=== PATIENT | female | born 1955 | race Caucasian/White ===

== ENCOUNTER → 2020-04-29 09:35 | Outpatient (BNVA) | payer BC, SELFPAY | PROVIDERS: Family Provider Nurse Practitioner Family; Visit Provider Nurse Practitioner Family | DX: E55.9 Vitamin D deficiency, unspecified (principal); N18.31 Chronic kidney disease, stage 3a; D51.8 Other vitamin B12 deficiency anemias; Z79.899 Other long term (current) drug therapy; I10 Essential (primary) hypertension; E78.2 Mixed hyperlipidemia | CPT/HCPCS: 80053; 80061; 82306; 82607; 82746; 83036; 83735; 84100; 84443; 85025 ==

== ENCOUNTER → 2022-07-21 09:20 | Outpatient (BNVA) | payer MEDICARE, SELFPAY | PROVIDERS: Family Provider Nurse Practitioner Family; PCP Nurse Practitioner; Visit Provider Nurse Practitioner | DX: I10 Essential (primary) hypertension (principal) | CPT/HCPCS: 80053; 80061; 85025 ==

== ENCOUNTER → 2023-11-16 09:00 | Outpatient (BNVA) | payer MEDICARE, SELFPAY | PROVIDERS: Family Provider Nurse Practitioner Family; PCP Nurse Practitioner Family; Visit Provider Nurse Practitioner Family | DX: I10 Essential (primary) hypertension (principal); N18.31 Chronic kidney disease, stage 3a; D51.8 Other vitamin B12 deficiency anemias; E55.9 Vitamin D deficiency, unspecified; E78.2 Mixed hyperlipidemia; Z79.899 Other long term (current) drug therapy | CPT/HCPCS: 80053; 80061; 81003; 82306; 82607; 83036; 84443; 85025 ==

== ENCOUNTER → 2023-11-24 11:31 | Outpatient (BNVA) | payer MEDICARE, SELFPAY | PROVIDERS: Family Provider Nurse Practitioner Family; PCP Nurse Practitioner Family; Visit Provider Nurse Practitioner Family | DX: N18.31 Chronic kidney disease, stage 3a (principal) | CPT/HCPCS: 80053; 81000; 82570; 84156 ==

== ENCOUNTER 2024-03-10 15:01 | Inpatient (IN) | payer MEDICARE, SELFPAY ==
[2024-03-10 15:33] VITALS: BP 101/66; PULSE 80; RESP 16; TEMP 36.4; O2SAT 99; BMI 44.2
[2024-03-10 15:51] LABS: Basophils # 0.1 10^3/uL (0.0-0.1); Basophils % 1.1 %; Eosinophils # 0.1 10^3/uL (0.0-0.8); Eosinophils % 0.6 %; Hematocrit 36.5 % (36-47); Lymphocytes # 1.5 10^3/uL (0.8-4.8); Lymphocytes % 13.5 %; Mean Corpuscular HGB Conc 30.4 g/dL (30-55); Mean Corpuscular Hemoglobin 29.2 pg (27-33); Mean Corpuscular Volume 96.1 fl (85-98); Mean Platelet Volume 9.4 fL (7.4-10.4); Monocytes # 0.8 10^3/uL (0.2-0.9); Monocytes % 6.9 %; Neutrophils # 8.81 10^3/uL (1.8-7.7); Neutrophils % 77.5 %; Nucleated Red Blood Cells % 0 %; Platelet Count 295 10^3/cmm (157-399); Red Cell Distribution Width 15.9 % (12.1-15.1); White Blood Count 11.37 10^3/uL (3.29-11.43)
[2024-03-10 16:16] LABS: Alanine Aminotransferase 8 U/L (0-33); Albumin Level 3.9 g/dL (3.5-5.2); Alkaline Phosphatase 62 U/L (35-105); Anion Gap 22.3 (5-19); Aspartate Amino Transferase 9 U/L (0-32); Calcium 9.6 mg/dL (8.5-10.5); Carbon Dioxide 16 mmol/L (22-29); Chloride 106 mmol/L (98-107); Creatinine Clr Calc Pharmacy 15.5969; Globulin 4.4 g/dL (1.3-4.6); Glucose 118 mg/dL (65-115); Lipase 40 U/L (13-60); Osmolality Calculated 323 mOsm/kg (285-295); Potassium 5.3 mmol/L (3.5-5.1); Sodium 139 mmol/L (136-145); Total Bilirubin 0.4 mg/dL (0.15-1.2); Total Protein 8.3 g/dL (6.6-8.7)
[2024-03-10 16:23] LABS: Blood Urea Nitrogen 109 mg/dL (8-23)
--- NOTE | 2024-03-10 16:35 | XRR_ITS ---
PROCEDURE INFORMATION: Exam: XR Chest Exam date and time: 03/10/2024 4:49 PM Age: 68 years old Clinical indication: Dyspnea; Additional info: SOB TECHNIQUE: Imaging protocol: Radiologic exam of the chest. Views: 1 view. COMPARISON: No relevant prior studies available. FINDINGS: Lungs: Suboptimal inspiration. No consolidation. Pleural spaces: Unremarkable. No pleural effusion. No pneumothorax. Heart/Mediastinum: Unremarkable. No cardiomegaly. Bones/joints: Unremarkable. XR/XR chest 1V portable [id number] IMPRESSION: No acute findings.
--- NOTE | 2024-03-10 16:50 | ED_ITS ---
HPI - SOB/Dyspnea 2 General: Chief Complaint: Shortness of Breath/Dyspnea Stated Complaint: dehydration Time Seen by Provider: 03/10/24 16:41 Source: patient Mode of arrival: ambulatory Limitations: no limitations History of Present Illness: HPI Narrative: 68-year-old female states that she had a viral bug 2 weeks ago and ever since then has been feeling really weak states she has had not had much oral intake and feels very dehydrated. States she is been short of breath with walking and has had decreased urination as well and concern that she is dehydrated. She denies any fevers she denies any diarrhea Associated symptoms: Reports vomiting; Deny abdominal pain, chest pain, fever(s) or nausea Related Data Previous Rx's Medication Instructions Recorded cholecalciferol (vitamin D3) 1,250 50,000 unit PO DAILY 90 days #12 11/23/23 mcg (50,000 unit) capsule caps folic acid 1 mg tablet 1,000 mcg PO DAILY 90 days #90 tabs 11/23/23 lisinopril 20 1 tab PO DAILY 90 days #90 tabs 11/23/23 mg-hydrochlorothiazide 25 mg tablet mecobalamin (vitamin B12) 1,000 1,000 mcg PO DAILY 90 days #90 tabs 11/23/23 mcg chewable tablet Allergies Allergy/AdvReac Type Severity Reaction Status Date / Time No Known Allergies Allergy Unverified 03/10/24 13:41 Review of Systems 2 Const: Reports: fatigue and malaise; Denies: fever(s), chills, body aches or change in appetite ENMT: Denies: throat pain or dental pain Card: Denies: chest pain Resp: Denies: dyspnea GI: Reports: vomiting; Denies: abdominal pain, nausea or diarrhea Musc: Denies: neck pain or back pain Skin/Breast: Denies: rash Neuro: Denies: headache(s) PFSH ED 2 PFSH: Medical History Hypotension Vitamin B12 deficiency (dietary) anemia Medication management Arthritis of left knee Vitamin D deficiency Mixed hyperlipidemia Vitamin B12 deficiency (dietary) anemia Primary osteoarthritis involving multiple joints CKD (chronic kidney disease), stage III Essential hypertension Family History Mother Hypertension Cancer breast cancer Father Hypertension Social History Smoking and tobacco/nicotine status: never used tobacco/nicotine Alcohol intake: never Substance/Drug Use: never Physical Exam 2 Const: COMMON NORMALS: patient oriented x3 HENMT: COMMON NORMALS: normocephalic and atraumatic HEAD & SCALP: n ormocephalic and atraumatic Neck/C-Spine: COMMON NORMALS: full ROM and supple Chest: COMMONS NORMALS: normal inspection of the chest and normal palpation of entire chest wall Resp: COMMON NORMALS: normal respiratory effort, No retractions, No use of accessory muscles and clear to auscultation bilaterally AUSCULTATION: clear to auscultation bilaterally Cardio: COMMON NORMALS: regular rate, regular rhythm and No murmurs present (Cardio) RATE: regular rate RHYTHM: regular rhythm GI: COMMON NORMALS: Normal to inspection, nondistended, normoactive bowel sounds present, Soft to palpation, non-tender and no masses PALPATION: Yes Soft to palpation Extremity: COMMON NORMALS: normal to inspection and full ROM Neuro: COMMON NORMALS: patient oriented x3, moves all extremities and no focal motor deficits Psych: COMMON NORMALS: mental status grossly normal, Normal thought process present and cooperative THOUGHT PROCESS: Normal thought process present Skin: COMMON NORMALS: no rashes or lesions noted and no wounds GENERAL SKIN EXAM: no rashes or lesions noted Course 2 Vital Signs: Vital signs: Vital Signs Temperature 97.6 F 03/10/24 15:33 Pulse Rate 80 03/10/24 15:33 Respiratory Rate 16 03/10/24 15:33 Blood Pressure 101/66 03/10/24 15:33 Pulse Oximetry 99 03/10/24 15:33 Oxygen Delivery Me thod Room Air 03/10/24 15:33 MDM - SOB/Dyspnea Medical Decision Making Patient presents with acute kidney injury likely from dehydration did start IV fluids in the ER spoke to the hospitalist will admit at this time. Medical Records I reviewed the patient's medical records. Lab Data I reviewed the patient's lab results. 03/10/24 15:43 03/10/24 15:43 Labs/Radiology: Laboratory Results WBC 11.37 10^3/uL (3.29-11.43) 03/10/24 15:43 RBC 3.80 10^6/uL (3.85-5.65) L 03/10/24 15:43 Hgb 11.10 g/dL (11.27-16.99) L 03/10/24 15:43 Hct 36.5 % (36-47) 03/10/24 15:43 MCV 96.1 fl (85-98) 03/10/24 15:43 MCH 29.2 pg (27-33) 03/10/24 15:43 MCHC 30.4 g/dL (30-55) 03/10/24 15:43 RDW 15.9 % (12.1-15.1) H 03/10/24 15:43 Plt Count 295 10^3/cmm (157-399) 03/10/24 15:43 MPV 9.4 fL (7.4-10.4) 03/10/24 15:43 Neut % (Auto) 77.5 % 03/10/24 15:43 Lymph % (Auto) 13.5 % 03/10/24 15:43 Turner % (Auto) 6.9 % 03/10/24 15:43 Eos % (Auto) 0.6 % 03/10/24 15:43 Baso % (Auto) 1.1 % 03/10/24 15:43 Neut # (Auto) 8.81 10^3/uL (1.8-7.7) H 03/10/24 15:43 Lymph # (Auto) 1.5 10^3/uL (0.8-4.8) 03/10/24 15:43 Turner # (Auto) 0.8 10^3/uL (0.2-0.9) 03/10/24 15:43 Eos # (Auto) 0.1 10^3/uL (0.0-0.8) 03/10/24 15:43 Baso # (Auto) 0.1 10^3/uL (0.0-0.1) 03/10/24 15:43 Nucleated RBC % (auto) 0 % 03/10/24 15:43 Nucleated RBCs # 0.0 /100WBC 03/10/24 15:43 Sodium 139 mmol/L (136-145) 03/10/24 15:43 Potassium 5.3 mmol/L (3.5-5.1) H 03/10/24 15:43 Chloride 106 mmol/L (98-107) 03/10/24 15:43 Carbon Dioxide 16 mmol/L (22-29) L 03/10/24 15:43 Anion Gap 22.3 (5-19) H 03/10/24 15:43 BUN 109 mg/dL (8-23) H* D 03/10/24 15:43 Creatinine 4.4 mg/dL (0.5-0.9) H 03/10/24 15:43 GFR Calculation 10.0 mL/min (90-130) L 03/10/24 15:43 Glucose 118 mg/dL (65-115) H 03/10/24 15:43 Calculated Osmolality 323 mOsm/kg (285-295) H 03/10/24 15:43 Calcium 9.6 mg/dL (8.5-10.5) 03/10/24 15:43 Total Bilirubin 0.4 mg/dL (0.15-1.2) 03/10/24 15:43 AST 9 U/L (0-32) 03/10/24 15:43 ALT 8 U/L (0-33) 03/10/24 15:43 Alkaline Phosphatase 62 U/L (35-105) 03/10/24 15:43 Total Protein 8.3 g/dL (6.6-8.7) 03/10/24 15:43 Albumin 3.9 g/dL (3.5-5.2) 03/10/24 15:43 Globulin 4.4 g/dL (1.3-4.6) 03/10/24 15:43 Lipase 40 U/L (13-60) 03/10/24 15:43 All radiology interpretation(s) finalized by discharge Discharge Plan Discharge Patient Disposition: Admitted As Inpatient Clinical Impression: Acute kidney injury, Dehydration Condition: Stable Prescriptions: No Action cholecalciferol (vitamin D3) 1,250 mcg (50,000 unit) capsule 50,000 unit PO DAILY 90 Days Qty: 12 1RF mecobalamin (vitamin B12) 1,000 mcg tablet,chewable 1,000 mcg PO DAILY 90 Days Qty: 90 0RF folic acid 1 mg tablet 1,000 mcg PO DAILY 90 Days Qty: 90 1RF lisinopril-hydrochlorothiazide 20-25 mg tablet 1 tab PO DAILY 90 Days Qty: 90 3RF Referrals: Gross,DJ, [employer]ER [Primary Care Provider] - Coding Level of Care Code ED [employer] E[employer]ctor for Walt Uriostegui
--- NOTE | 2024-03-10 16:57 | ECG_ITS ---
[facility] Test Date: 2024-03-10 Pat Name: Freda Grajeda Department: Room: Gender: Female Bargeman: : 1955 Requested By: Annabelle Zaldivar Order Number: [id number] Sherif MD: Rosalio Tabares M.D. Measurements Intervals [place] Rate: 78 P: 26 IN: 179 QRS: -1 QRSD: 93 T: 46 QT: 358 QTc: 408 Interpretive Statements SINUS RHYTHM LOW QRS VOLTAGE IN PRECORDIAL LEADS [QRS DEFLECTION < 1.0 mV IN CHEST LEADS] No previous ECG available for comparison Electronically Signed On 03-10-2024 18:19:57 CDT by Rosalio Tabares M.D. [email or web address]
[2024-03-10 17:08] LABS: NT Pro B Type Natriuretic Pept 320 pg/mL (0-125)
--- NOTE | 2024-03-10 17:25 | USR_ITS ---
PROCEDURE INFORMATION: Exam: US Retroperitoneal, Complete, Kidneys and Bladder Exam date and time: 03/10/2024 5:57 PM Age: 68 years old Clinical indication: Condition or disease; Other: [place] TECHNIQUE: Imaging protocol: Real-time ultrasound of the retroperitoneum with image documentation. Complete exam focused on the bilateral kidneys and urinary bladder. COMPARISON: No relevant prior studies available. FINDINGS: Right kidney: Right kidney measures 9.7 x 6.1 x 3.8 cm with a volume of 118.1 cc. There is renal cortical thinning. No hydronephrosis or mass. Left kidney: Left kidney measures 11.4 x 6.3 x 5.5 cm with volume of 206.7 cc. There is renal cortical thinning. No hydronephrosis. There is a solid-appearing structure at the inferior pole of the left kidney measuring 4.3 x 4.2 x 2.8 cm. A 9 mm calculus is present in a midpole calyx of the left kidney. There are poorly visualized cystic structures in the left kidney the larger of which measures 3.2 x 3.0 x 3.6 cm. There is some internal complexity within this cystic structure which is not well seen. Urinary bladder: Unremarkable. Other findings: Technically difficult study secondary to the body habitus of the patient. US/US renal BI* [id number] IMPRESSION: 1. Technically difficult study secondary to the body habitus of the patient. There is a 4.3 cm solid-appearing structure at the inferior pole of the left kidney. Additional cystic structures are poorly visualized. MRI of the abdomen, renal protocol with and without IV contrast recommended for further evaluation. 2. There is a 9 mm left renal calculus.
--- NOTE | 2024-03-10 17:26 | P.HP_ITS ---
Providers/Chief Complaint 2 Primary Care Provider: ELISE Ceron Chief Complaint: dehydration History of Present Illness Freda Grajeda is a 68 year old female with a past medical history of CKD stage III, hypertension, hyperlipidemia, who presents to [facility] due to poor appetite, fatigue, malaise, decreased urine output. Patient tells me that for the last 2 weeks she has had decreased oral intake, poor appetite, fatigue, malaise, decreased urine output. She tells me that 2 weeks ago she did have a bout of diarrhea which has resolved. She does report poor oral intake of fluids. 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 She is struggling to take care of her daughter, and has been having family members help take care of her. She denies a history of kidney stones. Denies any hematuria. Denies any falls. No nausea, no vomiting. No abdominal pain. No chest pain. Review of Systems 2 Const: Reports: fatigue and malaise Card: Denies: chest pain Resp: Denies: dyspnea GI: Denies: abdominal pain, nausea or vomiting : Denies: flank pain Medications/Allergies Home Medications Medication Instructions Recorded Confirmed Last Taken Type cholecalciferol (vitamin D3) 1,250 50,000 unit PO DAILY 90 days #12 11/23/23 03/10/24 Unknown Rx mcg (50,000 unit) capsule caps folic acid 1 mg tablet 1,000 mcg PO DAILY 90 days #90 tabs 11/23/23 03/10/24 Unknown Rx lisinopril 20 1 tab PO DAILY 90 days #90 tabs 11/23/23 03/10/24 Unknown Rx mg-hydrochlorothiazide 25 mg tablet mecobalamin (vitamin B12) 1,000 1,000 mcg PO DAILY 90 days #90 tabs 11/23/23 03/10/24 Unknown Rx mcg chewable tablet Allergies Allergy/AdvReac Type Severity Reaction Status Date / Time No Known Allergies Allergy Unverified 03/10/24 13:41 PFSH Acute 2 PFSH: Medical History Hypotension Vitamin B12 deficiency (dietary) anemia Medication management Arthritis of left knee Vitamin D deficiency Mixed hyperlipidemia Vitamin B12 deficiency (dietary) anemia Primary osteoarthritis involving multiple joints CKD (chronic kidney disease), stage III Essential hypertension Family History Mother Hypertension Cancer breast cancer Father Hypertension Social History Smoking and tobacco/nicotine status: never used tobacco/nicotine Alcohol intake: never Substance/Drug Use: never Vitals/I&O/Wt Last Vital Signs Temp 97.6 F 03/10/24 15:33 Pulse 80 03/10/24 15:33 Resp 16 03/10/24 15:33 BP 101/66 03/10/24 15:33 Pulse Ox 99 03/10/24 15:33 O2 Del Method Room Air 03/10/24 15:33 Weight last 48 hrs Weight 117.027 kg Physical Exam 2 Const: COMMON NORMALS: no acute distress and patient oriented x3 Eye: COMMON NORMALS: Equal, round and reactive pupils present and EOMs intact bilaterally Resp: COMMON NORMALS: normal respiratory effort, No retractions, No use of accessory muscles and clear to auscultation bilaterally AUSCULTATION: clear to auscultation bilaterally Cardio: COMMON NORMALS: no JVD, regular rate, regular rhythm, S1 normal heart sound present and S2 normal heart sound present RATE: regular rate RHYTHM: regular rhythm HEART SOUNDS: S1 normal heart sound present and S2 normal heart sound present GI: COMMON NORMALS: Normal to inspection, nondistended, normoactive bowel sounds present, Soft to palpation and non-tender Extremity: COMMON NORMALS: no pedal edema Neuro: COMMON NORMALS: patient oriented x3, CN's II-XII intact bilaterally, moves all extremities and no focal motor deficits Psych: COMMON NORMALS: mental status grossly normal Data 03/10/24 15:43 03/10/24 15:43 A&P Assessment and plan (1) Acute renal failure: (2) Uremia: (3) Essential hypertension: (4) CKD (chronic kidney disease), stage III: Qualifiers: Chronic kidney disease stage 3 subtype: stage 3a (GFR 45-59) Qualified Code(s): N18.31 - Chronic kidney disease, stage 3a Plan Acute renal failure -With CKD ? Secondary to poor appetite, dehydration Secondary to blood pressure medications ? Plan ? Lactic acid ? CPK ? Place Lomax catheter ? Monitor urine output closely IV fluids ? TSH ? Urine studies ? Renal ultrasound ? Consult nephrology ? Full code Heparin for DVT prophylaxis Attestations 2 Medical Necessity Statement*: Patient requires hospitalization, inpatient, greater than 2 midnights for acute renal failure Diagnoses Acute renal failure N17.9 Uremia N19 Essential hypertension I10 Stage 3a chronic kidney disease N18.31 Chronic kidney disease stage 3 subtype: stage 3a (GFR 45-59)
[2024-03-10 17:38] LABS: INR 1.08 (0.8-1.2)
[2024-03-10 17:53] LABS: Creatine Phosphokinase 39 U/L (26-192); Lactic Sepsis W/Reflex 1.8 mmol/L (0.5-2.2); Magnesium 2.3 mg/dL (1.7-2.3); Phosphorus 4.5 mg/dL (2.5-4.5)
[2024-03-10 18:10] LABS: Salicylate < 0.3 mg/dL (3-10)
[2024-03-10] MEDS: sodium chloride 0.9% 1,000 ML 125 ML IV (18:47)
--- NOTE | 2024-03-10 19:03 | PC.NURSE ---
20g iv inserted to left a/c
[2024-03-10 19:19] LABS: Chol HDL Ratio 4.69 mg/dL (0.0-4.40); Cholesterol 150 mg/dL (0-200); HDL Cholesterol 32 mg/dL (60-100); LDL Cholesterol Calculated 86 mg/dL (50-129); LDL HDL Ratio 2.69 RATIO (0.00-3.22); Thyroid Stimulating Hormone 2.45 uIU/mL (0.27-4.20); Triglycerides 158 mg/dL (0-150)
[2024-03-10 20:00] VITALS: BP 102/67; PULSE 67; PULSE 72; RESP 18; TEMP 36.4; O2SAT 98
[2024-03-10 20:27] VITALS: O2SAT 98
[2024-03-10] MEDS: pneumococcal (23 valent) SDV 0.5 mL IM (20:44)
[2024-03-10 20:47] LABS: Charge for UA Resulting for Rev
[2024-03-10] MEDS: heparin 5,000 unit/mL INJ 1 mL 5000 UNIT SUBCUT (20:47)
[2024-03-10] MEDS: pantoprazole 40 mg SDV IVP (20:48)
[2024-03-10 20:49] LABS: Bilirubin Urine Negative (Negative); Blood Urine 3+ (Negative); Glucose Urine UA Negative (Normal); Ketones Urine Trace (Negative); Leukocyte Esterase Urine 3+ (Negative); Nitrate Urine Negative (Negative); Protein Urine 3+ (Negative); Specific Gravity, Urine 1.015 (1.005-1.030); Urine Appearance Turbid (CLEAR); Urine Color Yellow (Yellow)
[2024-03-10 20:54] LABS: Bacteria Urine EXCEEDS /hpf; Hyaline Casts Urine 64.43 /lpf; RBC Urine >100 /hpf (0-2); WBC Urine >100 /hpf (0-5)
[2024-03-10 21:00] LABS: Amphetamines Screen Urine Negative (Negative); Barbiturates Screen Urine Negative (Negative); Benzodiazepines Screen Urine Negative (Negative); Cocaine Screen Urine Negative (Negative); Opiate Screen Urine Negative (Negative); PCP Screen Urine Negative (Negative); THC Screen Urine Negative (Negative)
[2024-03-10 21:11] LABS: Add Urine Culture? Yes; UA Slide Review UA Slide Review Perf
[2024-03-10 21:12] LABS: Potassium, Radom Urine 31 mmol/L; Urine Creatinine 171 mg/dL (28-217); Urine Random Chloride 44 mmol/L; Urine Random Sodium 49 mmol/L
[2024-03-10 21:13] LABS: Estmated Average Glucose 111; Hemoglobin A1C 5.5 % (4.0-6.0)
[2024-03-10 21:30] LABS: Eosinophil Urine Eosinophils Seen; Urine Eosinophil Count 2 (0-0)
[2024-03-10] MEDS: cefTRIAXone 1,000 mg SDV 1000 MG IVP (21:42)
[2024-03-10 21:59] VITALS: PULSE 67
[2024-03-10 23:58] VITALS: BP 100/63; PULSE 68; RESP 16; TEMP 36.7; O2SAT 97
[2024-03-11] VITALS (8 sets, daily range): BP systolic 80–107; BP diastolic 51–63; PULSE 65–72; RESP 15–18; TEMP 36.7–36.9; O2SAT 93–98
[2024-03-11] MEDS: sodium chloride 0.9% 1,000 ML 125 ML IV (00:23)
[2024-03-11 04:41] LABS: Basophils # 0.1 10^3/uL (0.0-0.1); Eosinophils # 0.1 10^3/uL (0.0-0.8); Eosinophils % 1.2 %; Hematocrit 31.5 % (36-47); Lymphocytes # 1.6 10^3/uL (0.8-4.8); Lymphocytes % 17.8 %; Mean Corpuscular HGB Conc 30.2 g/dL (30-55); Mean Corpuscular Hemoglobin 29.6 pg (27-33); Mean Corpuscular Volume 98.1 fl (85-98); Mean Platelet Volume 9.7 fL (7.4-10.4); Monocytes # 0.7 10^3/uL (0.2-0.9); Monocytes % 7.6 %; Neutrophils # 6.34 10^3/uL (1.8-7.7); Neutrophils % 71.8 %; Nucleated Red Blood Cells % 0 %; Platelet Count 228 10^3/cmm (157-399); Red Blood Count 3.21 10^6/uL (3.85-5.65); Red Cell Distribution Width 16.3 % (12.1-15.1); White Blood Count 8.83 10^3/uL (3.29-11.43)
[2024-03-11 05:03] LABS: Alanine Aminotransferase 9 U/L (0-33); Albumin Level 3.3 g/dL (3.5-5.2); Alkaline Phosphatase 54 U/L (35-105); Anion Gap 20.2 (5-19); Aspartate Amino Transferase 8 U/L (0-32); Calcium 8.7 mg/dL (8.5-10.5); Carbon Dioxide 15 mmol/L (22-29); Chloride 112 mmol/L (98-107); Creatinine Clr Calc Pharmacy 17.8367; Globulin 3.9 g/dL (1.3-4.6); Glomerular Filtration Rate 11.2 mL/min (90-130); Glucose 85 mg/dL (65-115); Potassium 5.2 mmol/L (3.5-5.1); Sodium 142 mmol/L (136-145); Total Bilirubin 0.2 mg/dL (0.15-1.2); Total Protein 7.2 g/dL (6.6-8.7)
[2024-03-11 05:13] LABS: Blood Urea Nitrogen 118 mg/dL (8-23); Osmolality Calculated 331 mOsm/kg (285-295)
[2024-03-11] MEDS: heparin 5,000 unit/mL INJ 1 mL 5000 UNIT SUBCUT (06:03)
--- NOTE | 2024-03-11 06:31 | P.CONIM_ITS ---
Providers/Reason For Consult 2 Consulting Physician/Specialty*: kommana/Nephrology Reason for Consult*: DEVYN on CKD Attending Physician: Jareth Johnson MD Primary Care Provider: ELISE Ceron History of Present Illness History of Present Illness Freda Grajeda is a 68 year old female Patient is a 68-year-old female with past medical history of hypertension, dyslipidemia, chronic kidney disease stage III with a baseline creatinine in the mid 1 range admitted to the hospital due to poor appetite fatigue malaise decreased p.o. intake. Patient also noticed decreased urine output in the last few days. Patient reports that she had a viral infection about 2 weeks ago and at that time she had severe diarrhea. Since that time patient diarrhea has improved but her p.o. intake and appetite has not improved. She was supposed to see nephrology and follow-up as outpatient but has not followed up. In the emergency department vital signs are stable and lab data is significant for potassium of 5.3 CO2 of 16 BUN of 109 and creatinine of 4.4. Home medications included HCTZ and lisinopril. Denies any NSAID use. Review of Systems 2 Narrative: Patient is awake alert on room air, no distress HEENT S1-S2 regular rate and rhythm per report Lungs clear per report No pedal edema Medications/Allergies Home Medications Medication Instructions Recorded Confirmed Last Taken Type cholecalciferol (vitamin D3) 1,250 50,000 unit PO DAILY 90 days #12 11/23/23 03/10/24 Unknown Rx mcg (50,000 unit) capsule caps folic acid 1 mg tablet 1,000 mcg PO DAILY 90 days #90 tabs 11/23/23 03/10/24 Unknown Rx mecobalamin (vitamin B12) 1,000 1,000 mcg PO DAILY 90 days #90 tabs 11/23/23 03/10/24 Unknown Rx mcg chewable tablet lisinopril 20 1 tab PO DAILY 03/10/24 03/10/24 Unknown History mg-hydrochlorothiazide 12.5 mg tablet Allergies Allergy/AdvReac Type Severity Reaction Status Date / Time No Known Allergies Allergy Unverified 03/10/24 13:41 Current Medications Generic Name Dose Route Start Last Admin Trade Name Freq PRN Reason Stop Dose Admin Ceftriaxone Sodium 1,000 mg 03/10/24 21:30 03/10/24 21:42 Ceftriaxone 1,000 Mg Sdv IVP 1,000 mg Q24H NICKIE Administration Protocol Heparin Sodium (Porcine) 5,000 unit 03/10/24 19:00 03/11/24 06:03 Heparin 5,000 Unit/Ml Inj 1 Ml SUBCUT 5,000 unit Q12H NICKIE Administration Pantoprazole Sodium 40 mg 03/10/24 18:44 03/10/24 20:48 Pantoprazole 40 Mg Sdv IVP 40 mg Q24H NICKIE Administration PFSH Acute 2 PFSH: Medical History Hypotension Vitamin B12 deficiency (dietary) anemia Medication management Arthritis of left knee Vitamin D deficiency Mixed hyperlipidemia Vitamin B12 deficiency (dietary) anemia Primary osteoarthritis involving multiple joints CKD (chronic kidney disease), stage III Essential hypertension Family History Mother Hypertension Cancer breast cancer Father Hypertension Social History Smoking and tobacco/nicotine status: never used tobacco/nicotine Alcohol intake: never Substance/Drug Use: never Vitals/I&O/Wt Last Vital Signs Temp 98.5 F 03/11/24 04:00 Pulse 72 03/11/24 04:00 Resp 15 03/11/24 04:00 BP 102/56 03/11/24 04:00 Pulse Ox 95 03/11/24 04:00 O2 Del Method Room Air 03/11/24 04:00 03/10/24 03/10/24 03/11/24 14:59 22:59 06:59 Intake Total 700 / 700 Output Total 100 / 100 500 / 600 Balance -100 / -100 200 / 100 Weight last 48 hrs Weight 124.919 kg Weight 120.882 kg Weight 117.027 kg Physical Exam 2 Urinary Catheter Management: Lomax: Cath Placed During This Visit: yes Reason for Continuing Indwelling Catheter: Acute Urinary Retention or Obstruction Urinary Catheter Date of Insertion: 03/10/24 Urinary Catheter Time of Insertion: 20:39 Data 03/11/24 04:03 03/11/24 04:03 A&P Assessment and plan (1) Acute renal failure: 1. Acute on chronic kidney disease stage III: Baseline creatinine in the mid 1 range, patient now presents with DEVYN with a creatinine of 4.4 associated with hyperkalemia and metabolic acidosis. Most likely prerenal in the setting of poor p.o. intake. Also noted presence of urine eosinophils but no skin rash or fevers. AIN possible( unsure offending agent ) UA with proteinuria and microscopic hematuria -Switch IV fluids to bicarbonate drip -No acute indication for dialysis currently -Will order serologies including complements HAILEE ANCA , hepatitis panel panel -Urine protein to creatinine ratio -Noted ultrasound results-has 4.3 cm lower pole left kidney solid structure, needs further evaluation-will order CT without contrast for now. 2. Hyperkalemia: Low K diet, monitor 3. Metabolic acidosis: Likely from recent diarrhea in the setting of DEVYN, switch fluids to bicarbonate drip 4. History of hypertension: Continue to hold lisinopril and HCTZ Patient evaluated using audiovisual cart. Time spent 40 minutes. (2) CKD (chronic kidney disease), stage III: Qualifiers: Chronic kidney disease stage 3 subtype: stage 3a (GFR 45-59) Qualified Code(s): N18.31 - Chronic kidney disease, stage 3a Consult Attestations 2 Medical Necessity Statement: Per medicine team Coding Level of Care Code Acute Code for [facility] Diagnoses Acute renal failure N17.9 Stage 3a chronic kidney disease N18.31 Chronic kidney disease stage 3 subtype: stage 3a (GFR 45-59)
--- NOTE | 2024-03-11 06:40 | CTR_ITS ---
PROCEDURE INFORMATION: Exam: CT Abdomen And Pelvis Without Contrast Exam date and time: 03/11/2024 8:13 AM Age: 68 years old Clinical indication: Abdominal tenderness; Additional info: Renal mass TECHNIQUE: Imaging protocol: Computed tomography of the abdomen and pelvis without contrast. Radiation optimization: All CT scans at this facility use at least one of these dose optimization techniques: automated exposure control; mA and/or kV adjustment per patient size (includes targeted exams where dose is matched to clinical indication); or iterative reconstruction. COMPARISON: US renal BI* [id number] 03/10/2024 5:57 PM RADIATION DOSE METRICS: Total DLP (mGy-cm): 1268.03 FINDINGS: Tubes, catheters and devices: Lomax catheter is present. Lungs: Calcified right hilar lymph are seen. Liver: Normal. No mass. Gallbladder and biliary ducts: Status post cholecystectomy. Pancreas: Normal. No ductal dilation. Spleen: Normal. No splenomegaly. Adrenal glands: Normal. No mass. Kidneys and ureters: Bilateral coarse nonobstructing renal calculi are present. The largest is seen right posteriorly measuring approximately 2.2 x 1.8 cm. There is a rounded solid-appearing mass present on the lower pole of the left kidney that measures 4.5 cm craniocaudal dimension by 3.2 cm AP dimension and 4.2 cm transverse dimension. This mass correlates with yesterday's sonographic finding. A 2nd isodense mass is seen in the upper pole of the left kidney within the renal hilum measuring 2.9 cm transverse dimension by 3 cm AP dimension and 3.1 cm craniocaudal dimension. Follow-up nonemergent pre and post gadolinium MRI imaging is suggested. Stomach and bowel: Unremarkable. No obstruction. No mucosal thickening. Appendix: No evidence of appendicitis. Intraperitoneal space: Unremarkable. No free air. No significant fluid collection. Vasculature: Unremarkable. No abdominal aortic aneurysm. Lymph nodes: Unremarkable. No enlarged lymph nodes. Urinary bladder: Bladder is mildly contracted. Reproductive: Unremarkable as visualized. Bones/joints: Unremarkable. No acute fracture. Soft tissues: Unremarkable. CT/CT abdomen pelvis wo con [id number] IMPRESSION: There are 2 solid isodense renal masses seen within the left kidney. The largest is seen on the lower pole. These masses correlate with yesterday's sonographic finding. Further evaluation with nonemergent pre and post gadolinium MRI imaging is suggested. COMMENTS: Consistent with the [employer] [place]'s Incidental Findings Committee white paper (J Am Edith Radiol 2018): Any incidental renal lesion less than 1 cm or classified as too small to characterize, or any incidental cystic renal lesion characterized as simple-appearing, is likely benign. No follow-up imaging is recommended for these lesions per consensus recommendations based on imaging criteria.
[2024-03-11 07:37] LABS: Complement C3 145 mg/dL (90-180)
[2024-03-11 07:56] LABS: Hepatitis B Core AB, Total Non-Reactive (Nonreactive); Hepatitis B Surface AB < 3.5 (11.5-1000); Hepatitis B Surface Antigen Non-Reactive (Nonreactive); Hepatitis C Virus Antibody Non-Reactive (Nonreactive)
[2024-03-11] MEDS: sodium bicarbonate 150 MEQ in dextrose 5% 1,000 ML 125 MEQ IV (08:28)
[2024-03-11] MEDS: cyanocobalamin 1,000 mcg Tablet 1000 MCG PO (08:29)
[2024-03-11] MEDS: folic acid 1 mg Tablet PO (08:29)
[2024-03-11 09:53] LABS: Erythrocyte Sedimentation Rate 42 mm/hr (0-15)
--- NOTE | 2024-03-11 12:53 | P.PN_ITS ---
Subjective 2 Subjective: Patient was seen this morning, she denies any nausea, no vomiting, no lightheadedness, dizziness, I had extensive discussion with her about Her CAT scan findings, will have to have her follow-up with urology as outpatient, will order further testing, her creatinine is down to 4, continue fluids, Vitals/I&O/Wt Last Vital Signs Temp 98.3 F 03/11/24 11:08 Pulse 70 03/11/24 11:08 Resp 15 03/11/24 11:08 BP 89/58 03/11/24 11:08 Pulse Ox 96 03/11/24 11:08 O2 Del Method Room Air 03/11/24 11:08 03/10/24 03/11/24 03/11/24 22:59 06:59 14:59 Intake Total 700 / 700 1103.417 / 1103.417 Output Total 100 / 100 500 / 600 Balance -100 / -100 200 / 100 1103.417 / 1103.417 Weight last 48 hrs Weight 124.919 kg Weight 120.882 kg Weight 117.027 kg Physical Exam 2 Const: COMMON NORMALS: no acute distress and patient oriented x3 Resp: COMMON NORMALS: normal respiratory effort, No retractions, No use of accessory muscles and clear to auscultation bilaterally AUSCULTATION: clear to auscultation bilaterally Cardio: COMMON NORMALS: regular rate, regular rhythm, S1 normal heart sound present and S2 normal heart sound present RATE: regular rate RHYTHM: r egular rhythm HEART SOUNDS: S1 normal heart sound present and S2 normal heart sound present GI: COMMON NORMALS: Normal to inspection, nondistended, normoactive bowel sounds present and non-tender Extremity: COMMON NORMALS: no pedal edema Neuro: COMMON NORMALS: patient oriented x3 Psych: COMMON NORMALS: mental status grossly normal Urinary Catheter Management: Lomax: Cath Placed During This Visit: yes Reason for Continuing Indwelling Catheter: Acute Urinary Retention or Obstruction Urinary Catheter Date of Insertion: 03/10/24 Urinary Catheter Time of Insertion: 20:39 Data 03/11/24 04:03 03/11/24 04:03 Micro: Microbiology 03/11/24 09:50 Blood Culture - Preliminary Blood SPECIMEN COLLECTED 03/11/24 09:47 Blood Culture - Preliminary Blood SPECIMEN COLLECTED A&P Assessment and plan (1) Acute renal failure: (2) Uremia: (3) Essential hypertension: (4) CKD (chronic kidney disease), stage III: Qualifiers: Chronic kidney disease stage 3 subtype: stage 3a (GFR 45-59) Qualified Code(s): N18.31 - Chronic kidney disease, stage 3a (5) UTI (urinary tract infection): (6) Renal mass: Plan Acute renal failure -With CKD ? Secondary to poor appetite, dehydration Secondary to blood pressure medications ? Plan ? Place Lomax catheter ? Monitor urine output closely IV fluids ? TSH 2.45 ? Urine studies, showing eosinophils ? Renal ultrasound US/US renal BI* [id number] IMPRESSION: 1. Technically difficult study secondary to the body habitus of the patient. There is a 4.3 cm solid-appearing structure at the inferior pole of the left kidney. Additional cystic structures are poorly visualized. MRI of the abdomen, renal protocol with and without IV contrast recommended for further evaluation. 2. There is a 9 mm left renal calculus Abdomen pelvis without IV contrast Kidneys and ureters: Bilateral coarse nonobstructing renal calculi are present. The largest is seen right posteriorly measuring approximately 2.2 x 1.8 cm. There is a rounded solid-appearing mass present on the lower pole of the left kidney that measures 4.5 cm craniocaudal dimension by 3.2 cm AP dimension and 4.2 cm transverse dimension. This mass correlates with yesterday's sonographic finding. A 2nd isodense mass is seen in the upper pole of the left kidney within the renal hilum measuring 2.9 cm transverse dimension by 3 cm AP dimension and 3.1 cm craniocaudal dimension. Follow-up nonemergent pre and post gadolinium MRI imaging is suggested. -Patient will need to follow-up with urology as outpatient, cannot give IV contrast or Brody in a.m. given patient's creatinine -Erythropoietin ordered -Currently on Rocephin for UTI ? Consult nephrology ? Full code Heparin for DVT prophylaxis Attestations 2 Medical Necessity Statement*: Patient requires hospitalization for acute renal failure, UTI, renal mass Diagnoses Acute renal failure N17.9 Uremia N19 Essential hypertension I10 Stage 3a chronic kidney disease N18.31 Chronic kidney disease stage 3 subtype: stage 3a (GFR 45-59) UTI (urinary tract infection) N39.0 Renal mass N28.89
[2024-03-11 13:26] LABS: C Reactive Protein 19.4 mg/L (0.0-4.9)
[2024-03-11 13:33] LABS: Procalcitonin 0.24 ng/mL (0-0.5)
[2024-03-11 16:19] LABS: Basophils # 0.1 10^3/uL (0.0-0.1); Basophils % 1.5 %; Eosinophils # 0.1 10^3/uL (0.0-0.8); Eosinophils % 1.9 %; Hematocrit 29.1 % (36-47); Lymphocytes # 1.5 10^3/uL (0.8-4.8); Lymphocytes % 22.4 %; Mean Corpuscular HGB Conc 30.6 g/dL (30-55); Mean Corpuscular Hemoglobin 29.5 pg (27-33); Mean Corpuscular Volume 96.4 fl (85-98); Mean Platelet Volume 9.3 fL (7.4-10.4); Monocytes # 0.5 10^3/uL (0.2-0.9); Monocytes % 7.8 %; Neutrophils # 4.56 10^3/uL (1.8-7.7); Neutrophils % 66.1 %; Nucleated Red Blood Cells % 0 %; Platelet Count 214 10^3/cmm (157-399); Red Blood Count 3.02 10^6/uL (3.85-5.65); Red Cell Distribution Width 16.1 % (12.1-15.1); White Blood Count 6.89 10^3/uL (3.29-11.43)
--- NOTE | 2024-03-11 16:30 | PC.NURSE ---
At 1530 this pt BP was reported to be 80's/50's. Manual BP obtained and it showed 80/52. Physician notified and orders given to have labs drawn. Orders entered. Pt placed in trendelenburg. BP recheck at 1615 showed BP to be 82/54. Physician notified. Orders to stop Sodium bicarb, bolus with 500 mL of NS, and then resume sodium bicarb after and recheck BP 1 hour after bolus is finished.
[2024-03-11 16:35] LABS: Lactate (Lactic Acid level) 1.2 mmol/L (0.5-2.2)
[2024-03-11 16:37] LABS: Alanine Aminotransferase 7 U/L (0-33); Albumin Level 3.2 g/dL (3.5-5.2); Alkaline Phosphatase 60 U/L (35-105); Anion Gap 17.1 (5-19); Aspartate Amino Transferase 7 U/L (0-32); C Reactive Protein 23.7 mg/L (0.0-4.9); Carbon Dioxide 20 mmol/L (22-29); Chloride 111 mmol/L (98-107); Globulin 3.5 g/dL (1.3-4.6); Glomerular Filtration Rate 11.8 mL/min (90-130); Glucose 107 mg/dL (65-115); Osmolality Calculated 329 mOsm/kg (285-295); Potassium 5.1 mmol/L (3.5-5.1); Sodium 143 mmol/L (136-145); Total Bilirubin 0.2 mg/dL (0.15-1.2); Total Protein 6.7 g/dL (6.6-8.7)
[2024-03-11] MEDS: sodium chloride 0.9% 500 ML 999 ML IV (16:41)
[2024-03-11 16:42] LABS: Creatinine Clr Calc Pharmacy 18.7755
[2024-03-11 16:45] LABS: Blood Urea Nitrogen 104 mg/dL (8-23)
[2024-03-11] MEDS: albumin 50 G/200 ML BAG 60 G IV (17:00)
[2024-03-11 17:16] LABS: Ferritin 865 ng/mL (15-150); Iron 67 ug/dL (37-145); Percent Saturation 38.2 % (20-50); Total Iron Binding Capacity 175 mcg/dl; Unsaturated Iron Binding 108 ug/dL (112-347)
[2024-03-11] MEDS: pantoprazole 40 mg SDV IVP (19:07)
[2024-03-11] MEDS: piperacillin-tazobactam 3.375 GM in sodium chloride 0.9% (plus) 50 ML IV (19:08)
[2024-03-11] MEDS: sucralfate 1 gm/10 mL Oral Liq UDC PO ×2 (19:08→22:24)
[2024-03-11 19:52] LABS: Urine Protein Random 324 mg/dL
[2024-03-11 19:54] LABS: Creatinine Urine, Random 324 mg/dL (28-217)
[2024-03-12] VITALS (10 sets, daily range): BP systolic 100–136; BP diastolic 56–70; PULSE 64–92; RESP 16–18; TEMP 36.5–37.1; O2SAT 96–98
[2024-03-12] MEDS: sodium bicarbonate 150 MEQ in dextrose 5% 1,000 ML 125 MEQ IV (00:06)
[2024-03-12] MEDS: sucralfate 1 gm/10 mL Oral Liq UDC PO ×4 (04:18→21:50)
[2024-03-12] MEDS: pantoprazole 40 mg SDV IVP ×2 (04:18→17:02)
[2024-03-12] MEDS: piperacillin-tazobactam 3.375 GM in sodium chloride 0.9% (plus) 50 ML IV ×2 (04:19→17:01)
[2024-03-12 05:08] LABS: Basophils # 0.1 10^3/uL (0.0-0.1); Basophils % 1.4 %; Eosinophils # 0.1 10^3/uL (0.0-0.8); Eosinophils % 2.4 %; Hematocrit 29.1 % (36-47); Lymphocytes # 1.7 10^3/uL (0.8-4.8); Lymphocytes % 29.3 %; Mean Corpuscular HGB Conc 30.6 g/dL (30-55); Mean Corpuscular Hemoglobin 29.3 pg (27-33); Mean Corpuscular Volume 95.7 fl (85-98); Mean Platelet Volume 9.9 fL (7.4-10.4); Monocytes # 0.4 10^3/uL (0.2-0.9); Monocytes % 6.1 %; Neutrophils # 3.58 10^3/uL (1.8-7.7); Neutrophils % 60.6 %; Nucleated Red Blood Cells % 0 %; Platelet Count 200 10^3/cmm (157-399); Red Blood Count 3.04 10^6/uL (3.85-5.65)
[2024-03-12 05:28] LABS: Alanine Aminotransferase < 5 U/L (0-33); Albumin Level 3.8 g/dL (3.5-5.2); Alkaline Phosphatase 50 U/L (35-105); Anion Gap 19.4 (5-19); Aspartate Amino Transferase 8 U/L (0-32); Calcium 9.3 mg/dL (8.5-10.5); Carbon Dioxide 22 mmol/L (22-29); Chloride 110 mmol/L (98-107); Creatinine Clr Calc Pharmacy 21.8383; Globulin 3.3 g/dL (1.3-4.6); Glomerular Filtration Rate 13.9 mL/min (90-130); Glucose 104 mg/dL (65-115); Osmolality Calculated 332 mOsm/kg (285-295); Potassium 4.4 mmol/L (3.5-5.1); Sodium 147 mmol/L (136-145); Total Bilirubin 0.4 mg/dL (0.15-1.2); Total Protein 7.1 g/dL (6.6-8.7)
[2024-03-12 05:37] LABS: Blood Urea Nitrogen 90 mg/dL (8-23)
[2024-03-12] MEDS: cyanocobalamin 1,000 mcg Tablet 1000 MCG PO (07:51)
[2024-03-12] MEDS: folic acid 1 mg Tablet PO (07:51)
--- NOTE | 2024-03-12 07:57 | PM.PN ---
Subjective Subjective: no new c/o Medications: Reviewed: Yes Vitals/I&O/Wt Last Vital Signs Temp 98.7 F 03/12/24 07:31 Pulse 67 03/12/24 07:31 Resp 18 03/12/24 07:31 BP 105/61 03/12/24 07:31 Pulse Ox 98 03/12/24 07:31 O2 Del Method Room Air 03/12/24 07:31 03/11/24 03/12/24 03/12/24 22:59 06:59 14:59 Intake Total 1714.583 / 2818.000 185.417 / 3003.417 Output Total 1200 / 1200 1100 / 2300 Balance 514.583 / 1618.000 -914.583 / 703.417 Weight last 48 hrs Weight 127.006 kg Weight 124.919 kg Weight 120.882 kg Weight 117.027 kg Physical Exam Narrative: awake , alert no distress S1S2 RRR per report Lungs clear per reort no edema Urinary Catheter Management: Lomax: Cath Placed During This Visit: yes Reason for Continuing Indwelling Catheter: Other Urinary Catheter Date of Insertion: 03/10/24 Urinary Catheter Time of Insertion: 20:39 Data 03/12/24 04:08 03/12/24 04:08 Micro: Microbiology 03/11/24 09:50 Blood Culture - Preliminary Blood SPECIMEN COLLECTED 03/11/24 09:47 Blood Culture - Preliminary Blood SPECIMEN COLLECTED A&P Assessment and plan (1) Acute renal failure: 1. Acute on chronic kidney disease stage III: Baseline creatinine in the mid 1 range, patient now presents with DEVYN with a creatinine of 4.4 associated with hyperkalemia and metabolic acidosis. Most likely prerenal in the setting of poor p.o. intake. Also noted presence of urine eosinophils but no skin rash or fevers. AIN possible( unsure offending agent ) UA with proteinuria and microscopic hematuria -Switch IV fluids to d5 1/2 NS -No acute indication for dialysis currently -Will order serologies including complements HAILEE ANCA , hepatitis panel panel -Urine protein to creatinine ratio -Noted ultrasound results-has 4.3 cm lower pole left kidney solid structure, needs further evaluation-will order CT without contrast for now. 2. Hyperkalemia: Low K diet, , improved, monitor 3. Metabolic acidosis: Likely from recent diarrhea in the setting of DEVYN,improved 4. History of hypertension: Continue to hold lisinopril and HCTZ Patient evaluated using audiovisual cart. Time spent 40 minutes. (2) CKD (chronic kidney disease), stage III: Qualifiers: Chronic kidney disease stage 3 subtype: stage 3a (GFR 45-59) Qualified Code(s): N18.31 - Chronic kidney disease, stage 3a Attestations Medical Necessity Statement*: per [facility] Coding Level of Care Code Acute Code for [facility] Diagnoses Acute renal failure N17.9 Stage 3a chronic kidney disease N18.31 Chronic kidney disease stage 3 subtype: stage 3a (GFR 45-59)
[2024-03-12] MEDS: dextrose 5%-sod chloride 0.45% 1,000 ML 100 ML IV ×2 (08:45→18:06)
--- NOTE | 2024-03-12 15:13 | P.PN_ITS ---
Subjective 2 Subjective: Patient was seen this morning, she denies any fevers, chills, nausea, vomiting Vitals/I&O/Wt Last Vital Signs Temp 98.2 F 03/12/24 12:01 Pulse 64 03/12/24 14:00 Resp 18 03/12/24 12:01 BP 103/63 03/12/24 12:01 Pulse Ox 97 03/12/24 12:01 O2 Del Method Room Air 03/12/24 12:01 03/12/24 03/12/24 03/12/24 06:59 14:59 22:59 Intake Total 185.417 / 3003.417 1869.167 / 1869.167 Output Total 1100 / 2300 Balance -914.583 / 744.137 5054.167 / 1869.167 Weight last 48 hrs Weight 127.006 kg Weight 124.919 kg Weight 120.882 kg Weight 117.027 kg Physical Exam 2 Const: COMMON NORMALS: no acute distress and patient oriented x3 Resp: COMMON NORMALS: normal respiratory effort, No retractions, No use of accessory muscles and clear to auscultation bilaterally AUSCULTATION: clear to auscultation bilaterally Cardio: COMMON NORMALS: regular rate, regular rhythm, S1 normal heart sound present and S2 normal heart sound present RATE: regular rate RHYTHM: r egular rhythm HEART SOUNDS: S1 normal heart sound present and S2 normal heart sound present GI: COMMON NORMALS: Normal to inspection, nondistended, normoactive bowel sounds present and non-tender Extremity: COMMON NORMALS: no pedal edema Neuro: COMMON NORMALS: patient oriented x3 Psych: COMMON NORMALS: mental status grossly normal Urinary Catheter Management: Lomax: Cath Placed During This Visit: yes Reason for Continuing Indwelling Catheter: Other Urinary Catheter Date of Insertion: 03/10/24 Urinary Catheter Time of Insertion: 20:39 Data 03/12/24 04:08 03/12/24 04:08 Micro: Microbiology 03/11/24 09:50 Blood Culture - Preliminary Blood NEGATIVE TO DATE 03/11/24 09:47 Blood Culture - Preliminary Blood NEGATIVE TO DATE 03/10/24 20:30 Urine Culture - Preliminary Urine,Clean Catch Gram Negative Rods A&P Assessment and plan (1) Acute renal failure: (2) Uremia: (3) Essential hypertension: (4) CKD (chronic kidney disease), stage III: Qualifiers: Chronic kidney disease stage 3 subtype: stage 3a (GFR 45-59) Qualified Code(s): N18.31 - Chronic kidney disease, stage 3a (5) UTI (urinary tract infection): (6) Renal mass: Plan Acute renal failure -With CKD ? Secondary to poor appetite, dehydration Secondary to blood pressure medications ? Plan ? Place Lomax catheter ? Monitor urine output closely IV fluids ? TSH 2.45 ? Urine studies, showing eosinophils ? Renal ultrasound US/US renal BI* [id number] IMPRESSION: 1. Technically difficult study secondary to the body habitus of the patient. There is a 4.3 cm solid-appearing structure at the inferior pole of the left kidney. Additional cystic structures are poorly visualized. MRI of the abdomen, renal protocol with and without IV contrast recommended for further evaluation. 2. There is a 9 mm left renal calculus Abdomen pelvis without IV contrast Kidneys and ureters: Bilateral coarse nonobstructing renal calculi are present. The largest is seen right posteriorly measuring approximately 2.2 x 1.8 cm. There is a rounded solid-appearing mass present on the lower pole of the left kidney that measures 4.5 cm craniocaudal dimension by 3.2 cm AP dimension and 4.2 cm transverse dimension. This mass correlates with yesterday's sonographic finding. A 2nd isodense mass is seen in the upper pole of the left kidney within the renal hilum measuring 2.9 cm transverse dimension by 3 cm AP dimension and 3.1 cm craniocaudal dimension. Follow-up nonemergent pre and post gadolinium MRI imaging is suggested. -Patient will need to follow-up with urology as outpatient, cannot give IV contrast or Brody in a.m. given patient's creatinine -Erythropoietin ordered -Currently on Zosyn for UTI ? Acute anemia monitor hemoglobin, Protonix, Carafate, Lovenox for DVT prophylaxis currently on hold, monitor hemoglobin closely ? Consulted nephrology ? Full code Heparin for DVT prophylaxis Attestations 2 Medical Necessity Statement*: Patient requires hospitalization, for acute renal failure, UTI, uremia Diagnoses Acute renal failure N17.9 Uremia N19 Essential hypertension I10 Stage 3a chronic kidney disease N18.31 Chronic kidney disease stage 3 subtype: stage 3a (GFR 45-59) UTI (urinary tract infection) N39.0 Renal mass N28.89
[2024-03-12 15:41] LABS: Basophils # 0.1 10^3/uL (0.0-0.1); Basophils % 1.2 %; Eosinophils # 0.2 10^3/uL (0.0-0.8); Eosinophils % 2.7 %; Hematocrit 28.2 % (36-47); Lymphocytes # 1.7 10^3/uL (0.8-4.8); Lymphocytes % 22.2 %; Mean Corpuscular HGB Conc 30.1 g/dL (30-55); Mean Corpuscular Hemoglobin 29.1 pg (27-33); Mean Corpuscular Volume 96.6 fl (85-98); Mean Platelet Volume 9.5 fL (7.4-10.4); Monocytes # 0.6 10^3/uL (0.2-0.9); Monocytes % 7.6 %; Neutrophils # 5.09 10^3/uL (1.8-7.7); Neutrophils % 65.9 %; Nucleated Red Blood Cells % 0 %; Platelet Count 200 10^3/cmm (157-399); Red Blood Count 2.92 10^6/uL (3.85-5.65); White Blood Count 7.72 10^3/uL (3.29-11.43)
--- NOTE | 2024-03-12 16:21 | PC.NURSE ---
#20g IV started to left lateral AC space X 1 attempt. Pt tolerated well.
[2024-03-13] VITALS (9 sets, daily range): BP systolic 101–120; BP diastolic 69–81; PULSE 59–72; RESP 16–18; TEMP 36.7–36.9; O2SAT 92–97
[2024-03-13] MEDS: pantoprazole 40 mg SDV IVP ×2 (03:57→16:52)
[2024-03-13] MEDS: sucralfate 1 gm/10 mL Oral Liq UDC PO ×2 (03:57→10:08)
[2024-03-13] MEDS: dextrose 5%-sod chloride 0.45% 1,000 ML 100 ML IV (03:57)
[2024-03-13] MEDS: piperacillin-tazobactam 3.375 GM in sodium chloride 0.9% (plus) 50 ML IV (04:00)
[2024-03-13 06:01] LABS: Basophils # 0.1 10^3/uL (0.0-0.1); Basophils % 1.7 %; Eosinophils # 0.2 10^3/uL (0.0-0.8); Eosinophils % 3.1 %; Hematocrit 28.4 % (36-47); Lymphocytes # 2.1 10^3/uL (0.8-4.8); Lymphocytes % 29.3 %; Mean Corpuscular HGB Conc 29.6 g/dL (30-55); Mean Corpuscular Hemoglobin 29.2 pg (27-33); Mean Corpuscular Volume 98.6 fl (85-98); Mean Platelet Volume 9.6 fL (7.4-10.4); Monocytes # 0.4 10^3/uL (0.2-0.9); Monocytes % 6.2 %; Neutrophils # 4.22 10^3/uL (1.8-7.7); Neutrophils % 59.3 %; Nucleated Red Blood Cells % 0 %; Platelet Count 194 10^3/cmm (157-399); Red Blood Count 2.88 10^6/uL (3.85-5.65); Red Cell Distribution Width 16.1 % (12.1-15.1); White Blood Count 7.11 10^3/uL (3.29-11.43)
[2024-03-13 06:24] LABS: Alanine Aminotransferase 6 U/L (0-33); Albumin Level 3.2 g/dL (3.5-5.2); Alkaline Phosphatase 41 U/L (35-105); Anion Gap 17.1 (5-19); Aspartate Amino Transferase 7 U/L (0-32); Blood Urea Nitrogen 66 mg/dL (8-23); Calcium 8.4 mg/dL (8.5-10.5); Carbon Dioxide 20 mmol/L (22-29); Chloride 108 mmol/L (98-107); Creatinine Clr Calc Pharmacy 24.2931; Globulin 3.2 g/dL (1.3-4.6); Glomerular Filtration Rate 15.6 mL/min (90-130); Glucose 110 mg/dL (65-115); Osmolality Calculated 312 mOsm/kg (285-295); Potassium 4.1 mmol/L (3.5-5.1); Sodium 141 mmol/L (136-145); Total Bilirubin 0.3 mg/dL (0.15-1.2); Total Protein 6.4 g/dL (6.6-8.7)
[2024-03-13] MEDS: folic acid 1 mg Tablet PO (08:34)
[2024-03-13] MEDS: cyanocobalamin 1,000 mcg Tablet 1000 MCG PO (08:34)
--- NOTE | 2024-03-13 10:07 | P.PN_ITS ---
Subjective 2 Subjective: denies any complaints Medications: Reviewed: Yes Vitals/I&O/Wt Last Vital Signs Temp 98.3 F 03/13/24 07:19 Pulse 64 03/13/24 07:19 Resp 17 03/13/24 07:19 BP 101/69 03/13/24 07:19 Pulse Ox 96 03/13/24 07:19 O2 Del Method Room Air 03/13/24 07:19 03/12/24 03/13/24 03/13/24 22:59 06:59 14:59 Intake Total 1465 / 3334.167 985 / 4319.167 530 / 530 Output Total 1000 / 1000 975 / 1975 Balance 465 / 2334.167 10 2344.167 530 / 530 Weight last 48 hrs Weight 129.365 kg Weight 127.006 kg Physical Exam 2 Narrative: awake , alert no distress S1S2 RRR per report Lungs clear per reort no edema Urinary Catheter Management: Lomax: Cath Placed During This Visit: yes Reason for Continuing Indwelling Catheter: Other Urinary Catheter Date of Insertion: 03/10/24 Urinary Catheter Time of Insertion: 20:39 Data 03/13/24 05:16 03/13/24 05:16 Micro: Microbiology 03/10/24 20:30 Urine Culture - Final Urine,Clean Catch Escherichia coli 03/11/24 09:50 Blood Culture - Preliminary Blood NEGATIVE TO DATE 03/11/24 09:47 Blood Culture - Preliminary Blood NEGATIVE TO DATE A&P Assessment and plan (1) Acute renal failure: 1. Acute on chronic kidney disease stage III: Baseline creatinine in the mid 1 range, patient now presents with DEVYN with a creatinine of 4.4 associated with hyperkalemia and metabolic acidosis. Most likely prerenal in the setting of poor p.o. intake. Also noted presence of urine eosinophils but no skin rash or fevers. AIN possible( unsure offending agent ) UA with proteinuria and microscopic hematuria -Switched IV fluids to d5 1/2 NS - DC when PO intake adequate Arrange Nephrology follow up @ DC , serologies pending 2. Hyperkalemia: Low K diet, , improved, monitor 3. Metabolic acidosis: Likely from recent diarrhea in the setting of DEVYN,improved 4. History of hypertension: Continue to hold lisinopril and HCTZ 5. left kidney solid lesions : Urology follow up as out pt and further imaging once renal fxn back to baseline Patient evaluated using audiovisual cart. Time spent 40 minutes. (2) CKD (chronic kidney disease), stage III: Qualifiers: Chronic kidney disease stage 3 subtype: stage 3a (GFR 45-59) Qualified Code(s): N18.31 - Chronic kidney disease, stage 3a Attestations 2 Medical Necessity Statement*: per [facility] Coding Level of Care Code Acute Code for [facility] Fwd Diagnoses Acute renal failure N17.9 Stage 3a chronic kidney disease N18.31 Chronic kidney disease stage 3 subtype: stage 3a (GFR 45-59)
--- NOTE | 2024-03-13 10:52 | P.PN_ITS ---
Subjective 2 Subjective: Patient tolerating her diet Discontinue IV fluids Creatinine improving Requested MRI abdomen without contrast tomorrow Possible discharge by tomorrow if creatinine keeps improving No fever Hemodynamic stable Discontinue Lomax catheter Vitals/I&O/Wt Last Vital Signs Temp 98.3 F 03/13/24 07:19 Pulse 64 03/13/24 07:19 Resp 17 03/13/24 07:19 BP 101/69 03/13/24 07:19 Pulse Ox 96 03/13/24 07:19 O2 Del Method Room Air 03/13/24 07:19 03/12/24 03/13/24 03/13/24 22:59 06:59 14:59 Intake Total 1465 / 3334.167 985 / 4319.167 530 / 530 Output Total 1000 / 1000 975 / 1975 Balance 465 / 2334.167 10 / 2344.167 530 / 530 Weight last 48 hrs Weight 129.365 kg Weight 127.006 kg Physical Exam 2 Narrative: Morbid obese No active sign of fluid overload GCS 15 Lower extremity no edema Pleasant Hemodynamic stable Tolerating diet S1, S2 Nonfocal neuroexam [id number] at the bedside Urinary Catheter Management: Lomax: Cath Placed During This Visit: yes Reason for Continuing Indwelling Catheter: Other Urinary Catheter Date of Insertion: 03/10/24 Urinary Catheter Time of Insertion: 20:39 Data 03/13/24 05:16 03/13/24 05:16 Micro: Microbiology 03/10/24 20:30 Urine Culture - Final Urine,Clean Catch Escherichia coli 03/11/24 09:50 Blood Culture - Preliminary Blood NEGATIVE TO DATE 03/11/24 09:47 Blood Culture - Preliminary Blood NEGATIVE TO DATE A&P Assessment and plan (1) Acute renal failure: (2) Uremia: (3) Essential hypertension: (4) CKD (chronic kidney disease), stage III: Qualifiers: Chronic kidney disease stage 3 subtype: stage 3a (GFR 45-59) Qualified Code(s): N18.31 - Chronic kidney disease, stage 3a (5) UTI (urinary tract infection): (6) Renal mass: Plan DEVYN: Improving with IV fluids Patient tolerating diet Discontinue IV fluids today UTI: Discontinue biotics switch to p.o. regimen Renal calculi: No acute sign of hydronephrosis Renal mass: Will request MRI abdomen without contrast tomorrow outpatient urology follow-up Acute anemia: Anemia of chronic disease? No active signs of bleed DVT prophylaxis heparin Cardiac diet Full code Discharge likely tomorrow Discontinue Lomax catheter today Attestations 2 Medical Necessity Statement*: Likely discharge tomorrow Diagnoses Acute renal failure N17.9 Uremia N19 Essential hypertension I10 Stage 3a chronic kidney disease N18.31 Chronic kidney disease stage 3 subtype: stage 3a (GFR 45-59) UTI (urinary tract infection) N39.0 Renal mass N28.89
[2024-03-13 11:07] LABS: Charge for UA Resulting for Rev
[2024-03-13 11:24] LABS: Add Urine Culture? Yes; Bacteria Urine 3+ /hpf; Squamous Epithelial Cell Urine 0-4 /hpf (0-5); Urine Color Yellow (Yellow); WBC Urine TOO NUMEROUS TO CNT /hpf (0-5)
[2024-03-13 11:26] LABS: Urine Appearance Turbid (CLEAR)
--- NOTE | 2024-03-13 12:22 | PC.SOCIAL ---
IMM update Pg. 2 of IMM updated and reviewed with patient, who verbalized understanding. Copy provided.
[2024-03-13] MEDS: ondansetron 2 mg/ML SDV 2 mL 4 MG IVP (15:39)
[2024-03-13] MEDS: amoxicillin-clav 875-125 mg Tablet 1 TAB PO (16:52)
--- NOTE | 2024-03-13 16:52 | PC.NURSE ---
Pt refused her 1644 sucralfate. She said Ever since this mornings dose I have felt nauseated, can we please skip this dose? This RN notified .
[2024-03-14 04:00] VITALS: BP 116/71; PULSE 66; RESP 17; TEMP 36.8; O2SAT 94
[2024-03-14] MEDS: pantoprazole 40 mg SDV IVP (04:32)
[2024-03-14] MEDS: sucralfate 1 gm/10 mL Oral Liq UDC PO ×2 (04:33→11:28)
[2024-03-14 04:54] LABS: Basophils # 0.1 10^3/uL (0.0-0.1); Basophils % 0.8 %; Eosinophils # 0.2 10^3/uL (0.0-0.8); Eosinophils % 2.1 %; Hematocrit 29.7 % (36-47); Lymphocytes # 2.1 10^3/uL (0.8-4.8); Lymphocytes % 21.9 %; Mean Corpuscular HGB Conc 30.3 g/dL (30-55); Mean Corpuscular Hemoglobin 29.3 pg (27-33); Mean Corpuscular Volume 96.7 fl (85-98); Mean Platelet Volume 9.8 fL (7.4-10.4); Monocytes # 0.5 10^3/uL (0.2-0.9); Monocytes % 5.1 %; Neutrophils # 6.65 10^3/uL (1.8-7.7); Neutrophils % 69.7 %; Nucleated Red Blood Cells % 0 %; Platelet Count 197 10^3/cmm (157-399); Red Blood Count 3.07 10^6/uL (3.85-5.65); Red Cell Distribution Width 15.9 % (12.1-15.1); White Blood Count 9.55 10^3/uL (3.29-11.43)
[2024-03-14 05:23] LABS: Anion Gap 14.4 (5-19); Blood Urea Nitrogen 49 mg/dL (8-23); Calcium 8.9 mg/dL (8.5-10.5); Carbon Dioxide 22 mmol/L (22-29); Chloride 109 mmol/L (98-107); Creatinine Clr Calc Pharmacy 26.7709; Glomerular Filtration Rate 17.6 mL/min (90-130); Glucose 89 mg/dL (65-115); Osmolality Calculated 304 mOsm/kg (285-295); Potassium 4.4 mmol/L (3.5-5.1); Sodium 141 mmol/L (136-145)
[2024-03-14 06:00] VITALS: PULSE 75
--- NOTE | 2024-03-14 06:00 | MR_ITS ---
WS: [id number] MRI OF THE ABDOMEN WITHOUT GADOLINIUM ENHANCEMENT TECHNIQUE: MRI renal protocol without gadolinium enhancement. Patient with renal insufficiency. Axial single shot, coronal single-shot, axial in/out of phase imaging and and axial T2 imaging CLINICAL INFORMATION: renal mass COMPARISON: Recent ultrasound and CT 03/11/2024 FINDINGS: Some images are limited due to respiratory artifact and body habitus. Again seen is the heterogeneous LEFT lower pole exophytic cortical mass measuring 4.7 x 4.2 cm suspic ious for neoplasm. This has a solid or semisolid appearance. Bilateral renal calculi. Bilateral renal cysts. Largest cyst upper pole LEFT kidney measuring 4.1 x 2 .9 cm. No hydronephrosis in either kidney. Prior cholecystectomy. Tiny esophageal hiatal hernia. Normal haley hiren abdominal aorta. Perinephric edema bilaterally can be seen with renal insufficiency. LEFT renal p elvic calculus is seen on the prior CT. MR/MR abdomen wo con [id number] Impression: Some images are limited due to respiratory artifact and body habitu s Again seen is the heterogeneous LEFT lower pole exophytic cortical mass measu ring 4.7 x 4.2 cm suspicious for neoplasm. This has a solid or semisolid appear ance. Recommend urology consultation
[2024-03-14 07:47] VITALS: BP 114/73; PULSE 71; RESP 16; TEMP 36.8; O2SAT 94
[2024-03-14] MEDS: amoxicillin-clav 875-125 mg Tablet 1 TAB PO (08:57)
[2024-03-14] MEDS: folic acid 1 mg Tablet PO (08:57)
[2024-03-14] MEDS: cyanocobalamin 1,000 mcg Tablet 1000 MCG PO (08:57)
--- NOTE | 2024-03-14 09:17 | P.DS_ITS ---
Discharge Providers Date of Admission: 03/10/24 17:27 Date of Discharge: March 14, 2024 Attending Provider at Admission: Jareth Johnson MD Attending Provider at Discharge: Harini Morel MD Primary Care Provider: ELISE Ceron Diagnoses at Discharge Discharge Diagnosis (1) Acute renal failure: Status: Acute (2) Uremia: Status: Acute (3) Essential hypertension: Status: Acute (4) CKD (chronic kidney disease), stage III: Status: Acute Qualifiers: Chronic kidney disease stage 3 subtype: stage 3a (GFR 45-59) Qualified Code(s): N18.31 - Chronic kidney disease, stage 3a (5) UTI (urinary tract infection): Status: Acute (6) Renal mass: Status: Acute Reason for Visit Reason for Visit: dehydration Hospital Course Hospital Course 68-year-old female 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 Urine output decreased as well. On top of that patient takes lisinopril, hydrochlorothiazide for her hypertension. In the ER she was diagnosed with acute on chronic kidney disease he was put on IV fluid hydration which improved her creatinine to great extent. UA consistent with pyuria, she remained afebrile, CT scan of abdomen showed renal mass which needed MRI of the abdomen. Patient will need outpatient nephrology and urology follow-up. Patient is stating that her sister was diagnosed with renal cell cancer as well around this age. She is well aware that cancer needs to be ruled out and she needs to follow-up with urologist. Creatinine at the time of admission 4.4, at the time of discharge is 2.7. Lomax catheter has been removed. Patient also has a left nonobstructing renal calculi 9 mm, no signs of hydronephrosis. Physical Exam Narrative: Morbidly obese Nonfocal neuroexam GCS 15 No sign of fluid overload Hemodynamically stable Urinary Catheter Management: Lomax: Cath Placed During This Visit: yes, but has since been removed by the nurse Reason for Continuing Indwelling Catheter: Acute Urinary Retention or Obstruction Urinary Catheter Date of Insertion: 03/10/24 Urinary Catheter Time of Insertion: 20:39 Date Urinary Catheter Removed: 03/13/24 Time Urinary Catheter Discontinued: 18:13 Discharge Data Studies Completed and Pending Completed Studies During Hospitalization Category Date Time Status CT abdomen pelvis wo con [id number] Routine Cat Scan 03/11/24 06:40 Completed CXRP [XR chest 1V portable [id number]] Stat Exams 03/10/24 16:35 Completed US renal BI* [id number] Stat Ultrasound 03/10/24 17:25 Completed Pending at discharge Category Date Time Status HAILEE Profile Rheumatology Routine Lab 03/11/24 07:07 Received ANCA [Anti-Neutrophil Cytoplasmic AB] Routine Lab 03/11/24 07:07 Received Blood Culture Stat Lab 03/11/24 09:50 Results Centromere B Antibody Routine Lab 03/12/24 18:32 Received Erythropoietin Stat Lab 03/11/24 07:07 Received Immunofixation (ROSINA), Urine Routine Lab 03/12/24 21:43 Received Immunofixation Serum Stat Lab 03/12/24 18:32 Received Occult Blood Stool [Immunochemical Fecal OCB] Routine Lab 03/11/24 16:41 U ncollected SCL 70 Stat Lab 03/12/24 18:32 Received SPEP [Total Protein Electrophoresis] Routine Lab 03/12/24 18:32 Received Urine Culture Routine Lab 03/13/24 09:26 Received Urine Protein Electrop Random Routine Lab 03/12/24 21:43 Received MR abdomen wo con [id number] Routine MRI 03/14/24 06:00 Ordered Radiology Impressions Chest X-Ray 03/10/24 16:35 IMPRESSION: No acute findings. Renal Ultrasound 03/10/24 17:25 IMPRESSION: 1. Technically difficult study secondary to the body habitus of the patient. There is a 4.3 cm solid-appearing structure at the inferior pole of the left kidney. Additional cystic structures are poorly visualized. MRI of the abdomen, renal protocol with and without IV contrast recommended for further evaluation. 2. There is a 9 mm left renal calculus. Abdomen/Pelvis CT 03/11/24 06:40 IMPRESSION: There are 2 solid isodense renal masses seen within the left kidney. The largest is seen on the lower pole. These masses correlate with yesterday's sonographic finding. Further evaluation with nonemergent pre and post gadolinium MRI imaging is suggested. COMMENTS: Consistent with the [place] [employer]'s Incidental Findings Committee white paper (J Am Edith Radiol 2018): Any incidental renal lesion less than 1 cm or classified as too small to characterize, or any incidental cystic renal lesion characterized as simple-appearing, is likely benign. No follow-up imaging is recommended for these lesions per consensus recommendations based on imaging criteria. Laboratory Results WBC 9.55 10^3/uL (3.29-11.43) 03/14/24 04:03 RBC 3.07 10^6/uL (3.85-5.65) L 03/14/24 04:03 Hgb 9.00 g/dL (11.27-16.99) L 03/14/24 04:03 Hct 29.7 % (36-47) L 03/14/24 04:03 MCV 96.7 fl (85-98) 03/14/24 04:03 MCH 29.3 pg (27-33) 03/14/24 04:03 MCHC 30.3 g/dL (30-55) 03/14/24 04:03 RDW 15.9 % (12.1-15.1) H 03/14/24 04:03 Plt Count 197 10^3/cmm (157-399) 03/14/24 04:03 MPV 9.8 fL (7.4-10.4) 03/14/24 04:03 Neut % (Auto) 69.7 % 03/14/24 04:03 Lymph % (Auto) 21.9 % 03/14/24 04:03 [place] % (Auto) 5.1 % 03/14/24 04:03 Eos % (Auto) 2.1 % 03/14/24 04:03 Baso % (Auto) 0.8 % 03/14/24 04:03 Neut # (Auto) 6.65 10^3/uL (1.8-7.7) 03/14/24 04:03 Lymph # (Auto) 2.1 10^3/uL (0.8-4.8) 03/14/24 04:03 [place] # (Auto) 0.5 10^3/uL (0.2-0.9) 03/14/24 04:03 Eos # (Auto) 0.2 10^3/uL (0.0-0.8) 03/14/24 04:03 Baso # (Auto) 0.1 10^3/uL (0.0-0.1) 03/14/24 04:03 Nucleated RBC % (auto) 0 % 03/14/24 04:03 Nucleated RBCs # 0.0 /100WBC 03/14/24 04:03 ESR 42 mm/hr (0-15) H 03/11/24 04:03 PT 14.40 SECONDS (12.1-14.9) 03/10/24 15:43 INR 1.08 (0.8-1.2) 03/10/24 15:43 Sodium 141 mmol/L (136-145) 03/14/24 04:03 Potassium 4.4 mmol/L (3.5-5.1) 03/14/24 04:03 Chloride 109 mmol/L (98-107) H 03/14/24 04:03 Carbon Dioxide 22 mmol/L (22-29) 03/14/24 04:03 Anion Gap 14.4 (5-19) 03/14/24 04:03 BUN 49 mg/dL (8-23) H 03/14/24 04:03 Creatinine 2.7 mg/dL (0.5-0.9) H 03/14/24 04:03 GFR Calculation 17.6 mL/min (90-130) L 03/14/24 04:03 Glucose 89 mg/dL (65-115) 03/14/24 04:03 Estimat Average Glucose 111 03/10/24 15:43 Hemoglobin A1c 5.5 % (4.0-6.0) 03/10/24 15:43 Calculated Osmolality 304 mOsm/kg (285-295) H 03/14/24 04:03 Lactic Acid 1.8 mmol/L (0.5-2.2) 03/10/24 15:43 Lactate 1.2 mmol/L (0.5-2.2) 03/11/24 16:11 Calcium 8.9 mg/dL (8.5-10.5) 03/14/24 04:03 Phosphorus 4.5 mg/dL (2.5-4.5) 03/10/24 15:43 Magnesium 2.3 mg/dL (1.7-2.3) 03/10/24 15:43 Iron 67 ug/dL (37-145) 03/11/24 07:07 TIBC 175 mcg/dl 03/11/24 07:07 % Saturation 38.2 % (20-50) 03/11/24 07:07 Unsat Iron Binding 108 ug/dL (112-347) L 03/11/24 07:07 Ferritin 865 ng/mL (15-150) H 03/11/24 07:07 Total Bilirubin 0.3 mg/dL (0.15-1.2) 03/13/24 05:16 AST 7 U/L (0-32) 03/13/24 05:16 ALT 6 U/L (0-33) 03/13/24 05:16 Alkaline Phosphatase 41 U/L (35-105) 03/13/24 05:16 Creatine Kinase 39 U/L (26-192) 03/10/24 15:43 C-Reactive Protein 23.7 mg/L (0.0-4.9) H 03/11/24 16:11 NT-Pro-B Natriuret Pep 320 pg/mL (0-125) H 03/10/24 15:43 Total Protein 6.4 g/dL (6.6-8.7) L 03/13/24 05:16 Albumin 3.2 g/dL (3.5-5.2) L 03/13/24 05:16 Globulin 3.2 g/dL (1.3-4.6) 03/13/24 05:16 Triglycerides 158 mg/dL (0-150) H 03/10/24 15:43 Cholesterol 150 mg/dL (0-200) 03/10/24 15:43 LDL Cholesterol, Calc 86 mg/dL (50-129) 03/10/24 15:43 HDL Cholesterol 32 mg/dL (60-100) L 03/10/24 15:43 LDL/HDL Ratio 2.69 RATIO (0.00-3.22) 03/10/24 15:43 Cholesterol/HDL Ratio 4.69 mg/dL (0.0-4.40) H 03/10/24 15:43 Lipase 40 U/L (13-60) 03/10/24 15:43 Procalcitonin 0.24 ng/mL (0-0.5) 03/11/24 07:07 TSH 2.45 uIU/mL (0.27-4.20) 03/10/24 15:43 Urine Color Yellow (Yellow) 03/13/24 09:26 Urine Appearance Turbid (CLEAR) A 03/13/24 09:26 Urine pH Not Reportable 03/13/24 09:26 Ur Specific [place] Not Reportable 03/13/24 09:26 Urine Protein Not Reportable 03/13/24 09:26 Urine Glucose (UA) Not Reportable 03/13/24 09:26 Urine Ketones Not Reportable 03/13/24 09:26 Urine Blood Not Reportable 03/13/24 09:26 Urine Nitrate Not Reportable 03/13/24 09:26 Urine Bilirubin Not Reportable 03/13/24 09:26 Urine Urobilinogen Not Reportable 03/13/24 09:26 Ur Leukocyte Esterase Not Reportable 03/13/24 09:26 Urine RBC 5-10 /hpf (0-2) H 03/13/24 09:26 Urine WBC Too numerous to cnt /hpf (0-5) H 03/13/24 09:26 Ur Eosinophil Smear 2 (0-0) H 03/10/24 20:30 Ur Squamous Epith Cells 0-4 /hpf (0-5) H 03/13/24 09:26 Amorphous Sediment Not Reportable 03/13/24 09:26 Urine Bacteria 3+ /hpf (NONE) H 03/13/24 09:26 Hyaline Casts 64.43 /lpf 03/10/24 20:30 Urine Eosinophils Eosinophils seen H 03/10/24 20:30 U Random Total Protein 324 mg/dL 03/10/24 20:30 Ur Random Sodium 49 mmol/L 03/10/24 20:30 Ur Random Potassium 31 mmol/L 03/10/24 20:30 Ur Random Chloride 44 mmol/L 03/10/24 20:30 Urine Creatinine 171 mg/dL (28-217) 03/10/24 20:30 Urine Creatinine 324 mg/dL (28-217) H 03/10/24 20:30 Salicylates < 0.3 mg/dL (3-10) L 03/10/24 15:43 Urine Opiates Screen Negative ng/mL (Negative) 03/10/24 20:30 Ur Barbiturates Screen Negative ng/mL (Negative) 03/10/24 20:30 Ur Phencyclidine Scrn Negative ng/mL (Negative) 03/10/24 20:30 Ur Amphetamines Screen Negative ng/mL (Negative) 03/10/24 20:30 U Benzodiazepines Scrn Negative ng/mL (Negative) 03/10/24 20:30 Urine Cocaine Screen Negative ng/mL (Negative) 03/10/24 20:30 U Marijuana (THC) Screen Negative ng/mL (Negative) 03/10/24 20:30 Rheumatoid Factor 10.0 IU/mL (0-14) 03/12/24 04:08 Complement C3 145 mg/dL (90-180) 03/11/24 07:07 Complement C4 25 mg/dL (10-40) 03/11/24 07:07 Hep Bs Antigen Non-reactive (Nonreactive) 03/11/24 07:07 Hep Bs Antibody < 3.5 (11.5-1000) L 03/11/24 07:07 Hep B Core Total Ab Non-reactive (Nonreactive) 03/11/24 07:07 Hepatitis C Antibody Non-reactive (Nonreactive) 03/11/24 07:07 Vitals Last Vital Signs Temp 98.2 F 03/14/24 07:47 Pulse 71 03/14/24 07:47 Resp 16 03/14/24 07:47 BP 114/73 03/14/24 07:47 Pulse Ox 94 03/14/24 07:47 O2 Del Method Room Air 03/14/24 07:47 Discharge Plan Discharge Patient Disposition: Home Condition: Stable Prescriptions: New cyanocobalamin (vitamin B-12) 1,000 mcg tablet 1,000 mcg PO DAILY Qty: 60 2RF amoxicillin-pot clavulanate 875-125 mg Tablet 1 tab PO BID Qty: 8 0RF amlodipine 10 mg tablet 10 mg PO DAILY Qty: 30 2RF Continued cholecalciferol (vitamin D3) 1,250 mcg (50,000 unit) capsule 50,000 unit PO DAILY 90 Days Qty: 12 1RF mecobalamin (vitamin B12) 1,000 mcg tablet,chewable 1,000 mcg PO DAILY 90 Days Qty: 90 0RF folic acid 1 mg tablet 1,000 mcg PO DAILY 90 Days Qty: 90 1RF Discontinued lisinopril-hydrochlorothiazide 20-12.5 mg Tablet 1 tab PO DAILY Referrals: AMANUEL Montoya, [employer] [Primary Care Provider] - Greg Rosario MD [Referring] - 1 week (Renal mass) Mary Garcia MD [Referring] - 1 week (ckd) Discharge Diet: Cardiac Discharge Activity: Increase activity as tolerated Patient Instructions: Opioid Safety Discharge Attestations Time Spent in Discharge Care*: greater than 30 min Quality Metrics Clinical Quality Measures [ No reported AMI, CVA or VTE this stay] Coding Level of Care Code Acute Code for Chg Fwd Diagnoses Acute renal failure N17.9 Uremia N19 Essential hypertension I10 Stage 3a chronic kidney disease N18.31 Chronic kidney disease stage 3 subtype: stage 3a (GFR 45-59) UTI (urinary tract infection) N39.0 Renal mass N28.89
--- NOTE | 2024-03-14 09:28 | P.PN_ITS ---
Subjective 2 Subjective: no new complaints Medications: Reviewed: Yes Vitals/I&O/Wt Last Vital Signs Temp 98.2 F 03/14/24 07:47 Pulse 71 03/14/24 07:47 Resp 16 03/14/24 07:47 BP 114/73 03/14/24 07:47 Pulse Ox 94 03/14/24 07:47 O2 Del Method Room Air 03/14/24 07:47 03/13/24 03/14/24 03/14/24 22:59 06:59 14:59 Intake Total 360 / 360 Output Total 1750 / 1750 600 / 2350 200 / 200 Balance -1750 / -238.333 -600 / -838.333 160 / 160 Weight last 48 hrs Weight 127.63 kg Weight 129.365 kg Physical Exam 2 Narrative: Morbidly obese Nonfocal neuroexam GCS 15 No sign of fluid overload Hemodynamically stable Urinary Catheter Management: [place]ax: Cath Placed During This Visit: yes, but has since been removed by the nurse Reason for Continuing Indwelling Catheter: Acute Urinary Retention or Obstruction Urinary Catheter Date of Insertion: 03/10/24 Urinary Catheter Time of Insertion: 20:39 Date Urinary Catheter Removed: 03/13/24 Time Urinary Catheter Discontinued: 18:13 Data 03/14/24 04:03 03/14/24 04:03 Micro: Microbiology 03/10/24 20:30 Urine Culture - Final Urine,Clean Catch Escherichia coli A&P Assessment and plan (1) Acute renal failure: 1. Acute on chronic kidney disease stage III: Baseline creatinine in the mid 1 range, patient now presents with DEVYN with a creatinine of 4.4 associated with hyperkalemia and metabolic acidosis. Most likely prerenal in the setting of poor p.o. intake. Also noted presence of urine eosinophils but no skin rash or fevers. AIN possible( unsure offending agent ) UA with proteinuria and microscopic hematuria -Cr improved , started lasix 20 mg PO daily Arrange Nephrology follow up @ DC , serologies pending 2. Hyperkalemia: Low K diet, , improved, monitor 3. Metabolic acidosis: Likely from recent diarrhea in the setting of DEVYN,improved 4. History of hypertension: Continue to hold lisinopril and HCTZ, do not resume @ dc 5. left kidney solid lesions : Urology follow up as out pt and further imaging once renal fxn back to baseline Patient evaluated using audiovisual cart. Time spent 40 minutes. (2) CKD (chronic kidney disease), stage III: Qualifiers: Chronic kidney disease stage 3 subtype: stage 3a (GFR 45-59) Qualified Code(s): N18.31 - Chronic kidney disease, stage 3a Attestations 2 Medical Necessity Statement*: per [facility] Coding Level of Care Code Acute Code for [facility] Fwd Diagnoses Acute renal failure N17.9 Stage 3a chronic kidney disease N18.31 Chronic kidney disease stage 3 subtype: stage 3a (GFR 45-59)
[2024-03-14 11:37] VITALS: BP 134/72; PULSE 75; RESP 21; TEMP 36.7; O2SAT 91
[2024-03-14 13:28] LABS: COMPLEMENT, TOTAL (CH50) >60 U/mL (31-60)
[2024-03-14 15:00] VITALS: BP 97/66; PULSE 85; RESP 16; TEMP 36.7; O2SAT 95
[2024-03-14 17:06] LABS: COMPLEMENT COMPONENT C3C 153 mg/dL (83-193); COMPLEMENT COMPONENT C4C 25 mg/dL (15-57)
[2024-03-15 10:19] LABS: ANCA Screen NEGATIVE (NEGATIVE)
[2024-03-15 12:14] LABS: CENTROMERE B ANTIBODY <1.0 NEG AI (<1.0 NEG); JO-1 ANTIBODY <1.0 NEG AI (<1.0 NEG); RNP ANTIBODY <1.0 NEG AI (<1.0 NEG); SCL-70 ANTIBODY <1.0 NEG AI (<1.0 NEG); SJOGREN'S ANTIBODY (SS-A) <1.0 NEG AI (<1.0 NEG); SM ANTIBODY <1.0 NEG AI (<1.0 NEG); SS-B <1.0 NEG AI (<1.0 NEG)
[2024-03-15 14:41] LABS: Centromere B Antibody <1.0 NEG AI (<1.0 NEG); SCL 70 <1.0 NEG AI (<1.0 NEG)
[2024-03-15 15:00] LABS: ANA SCREEN, IFA NEGATIVE (NEGATIVE)
[2024-03-16 10:39] LABS: Creatinine, Random Urine 56 mg/dL (20-275); Protein, Total, Random 64 mg/dL (5-24); Protein/Creatinine Ratio 1.143 (0.024-0.184); Protein/Creatinine Ratio 1143 mg/g creat (24-184)
[2024-03-16 10:45] LABS: THYROID PEROXIDASE ANTIBODIES 1 IU/mL (<9)
[2024-03-16 14:50] LABS: Erythropoietin 8.7 mIU/mL (2.6-18.5)
[2024-03-17 11:20] LABS: PROTEIN, TOTAL 6.3 g/dL (6.1-8.1)
[2024-03-17 15:00] LABS: ALBUMIN 3.1 g/dL (3.8-4.8); ALPHA 1 GLOBULIN 0.3 g/dL (0.2-0.3); ALPHA 2 GLOBULIN 0.9 g/dL (0.5-0.9); BETA 1 GLOBULIN 0.3 g/dL (0.4-0.6); BETA 2 GLOBULIN 0.4 g/dL (0.2-0.5); GAMMA GLOBULIN 1.3 g/dL (0.8-1.7)
[2024-03-17 19:09] LABS: Immunofixation Serum Normal pattern.
[2024-03-19 08:34] LABS: DNA AB (DS) CRITHIDIA,IFA NEGATIVE (NEGATIVE)
[2024-03-20 13:24] LABS: Albumin,Urine Random 33 %; Alpha-1-Globulins Urine Random 8 %; Alpha-2-Globulins Urine Random 16 %; Beta-Globulin,Urine Random 24 %; Gamma Globulin,Urine Random 19 %
== END 2024-03-14 15:33 | disposition home or self-care (01) | DRG 683 ==
LOC: ER 17:16 → MEDSURG 17:28
PROVIDERS: Emergency Medicine; Hospitalist; Admitting Provider Family Medicine; Family Provider Nurse Practitioner Family; PCP Nurse Practitioner Family; Visit Provider Internal Medicine
DX: N17.9 Acute kidney failure, unspecified (principal); N39.0 Urinary tract infection, site not specified; I12.9 Hypertensive chronic kidney disease with stage 1 through stage 4 chronic kidney disease, or unspecified chronic kidney disease; N18.31 Chronic kidney disease, stage 3a; E78.2 Mixed hyperlipidemia; D51.9 Vitamin B12 deficiency anemia, unspecified; E55.9 Vitamin D deficiency, unspecified; M19.90 Unspecified osteoarthritis, unspecified site; N28.9 Disorder of kidney and ureter, unspecified; N28.89 Other specified disorders of kidney and ureter; E86.0 Dehydration; N20.0 Calculus of kidney
CPT/HCPCS: 36415; 51702; 71045; 74176; 74181; 76770; 80048; 80053; 80061; 80306; 80307; 81003; 81015; 82436; 82550; 82570; 82575; 82668; 82728; 83036; 83540; 83550; 83605; 83690; 83735; 83880; 84100; 84133; 84145; 84155; 84156; 84165; 84166; 84300; 84443; 85025; 85610; 85651; 85999; 86036; 86140; 86160; 86162; 86235; 86255; 86334; 86335; 86376; 86431; 86705; 86706; 86803; 87040; 87077; 87086; 87186; 87340; 90471; 90732; 93005; 94664; 96360; 96372; 99285; J0696; J1644; J2405; J2470; J2543; J7030; J7040; J7070; J7799; P9046; Q3014

== ENCOUNTER → 2024-04-10 14:22 | Outpatient (BNVA) | payer MEDICARE, SELFPAY | PROVIDERS: Family Provider Nurse Practitioner Family; PCP Nurse Practitioner Family; Visit Provider Nurse Practitioner Family | DX: N18.31 Chronic kidney disease, stage 3a (principal) | CPT/HCPCS: 80053; 82043; 82306; 82310; 83970; 85025 ==

== ENCOUNTER → 2024-04-24 09:05 | Outpatient (BNVA) | payer MEDICARE, SELFPAY | PROVIDERS: Family Provider Nurse Practitioner Family; PCP Nurse Practitioner Family; Visit Provider Nurse Practitioner Family | DX: N18.31 Chronic kidney disease, stage 3a (principal) | CPT/HCPCS: 80053; 82043; 82310; 83970; 85025 ==

== ENCOUNTER 2024-05-17 15:38 | Outpatient (CLI) | payer MEDICARE, SELFPAY ==
--- NOTE | 2024-05-17 15:40 | MM_ITS ---
WS: [id number] BILATERAL 3D TOMOSYNTHESIS DIGITAL SCREENING MAMMOGRAPHY WITH CAD CLINICAL INFORMATION: SCREENING HISTORY: Screening mammogram. No current complaints. COMPARISON: 2019 TECHNIQUE: Bilateral CC and MLO views. FINDINGS: Scattered fibroglandular densities bilaterally. No suspicious focal mass, asymmetry, calcifications, or architectural distortion. No evidence of malignancy. Eggshell calcification anterior RIGHT breast. MM/MM scr BI tomosynthesis [id number] IMPRESSION: DENSITY: There are scattered areas of fibroglandular density. BI-RADS: 2 - Benign. FOLLOW UP: 1 Year Follow-up Recommend return to annual screening mammography.
== END 2024-05-17 15:39 | disposition home or self-care (01) ==
LOC: MOBLMAM 15:40
PROVIDERS: Family Provider Nurse Practitioner Family; PCP Nurse Practitioner Family; Visit Provider Nurse Practitioner Family
DX: Z12.31 Encounter for screening mammogram for malignant neoplasm of breast (principal); R92.323 Mammographic fibroglandular density, bilateral breasts; R92.1 Mammographic calcification found on diagnostic imaging of breast
CPT/HCPCS: 77063; 77067

== ENCOUNTER → 2024-06-20 10:20 | Outpatient (BNVA) | payer MEDICARE, SELFPAY | PROVIDERS: Family Provider Nurse Practitioner Family; PCP Nurse Practitioner Family; Visit Provider Nurse Practitioner Family | DX: N18.31 Chronic kidney disease, stage 3a (principal) | CPT/HCPCS: 80069; 82043; 82310; 83970; 85025 ==

== ENCOUNTER → 2024-09-25 10:08 | Outpatient (BNVA) | payer MEDICARE, SELFPAY | PROVIDERS: Family Provider Nurse Practitioner Family; PCP Nurse Practitioner Family; Visit Provider Nurse Practitioner Family | DX: Z90.5 Acquired absence of kidney (principal) | CPT/HCPCS: 82570; 87070; 87205 ==

== ENCOUNTER 2025-06-13 09:37 | Outpatient (CLI) | payer MEDICARE, SELFPAY ==
--- NOTE | 2025-06-13 09:40 | MM_ITS ---
WS: [id number] SCREENING DIGITAL BREAST TOMOSYNTHESIS MAMMOGRAM WITH CAD HISTORY: SCREENING COMPARISON: 05/17/2024, 01/26/2019 Bilateral CC and MLO with tomosynthesis and synthetic mammography submitted. Computer aided detection analyzed. Breast composition: There are scattered areas of fibroglandular density. New well-circumscribed mass in the medial inferior RIGHT breast measures 5 x 6 x 5 mm. This mass may be partially calcified. Additional imaging recommended as it is new. There is an additional mass with wall calcification in the anterior breast which is benign and stable. No suspicious grouping of calcifications. MM/MM scr BI tomosynthesis [id number] IMPRESSION: BI-RADS: 2 - Benign. FOLLOW UP: 1 Year Follow-up
== END 2025-06-13 09:38 | disposition home or self-care (01) ==
LOC: MOBLMAM 09:41
PROVIDERS: Family Provider Nurse Practitioner Family; PCP Nurse Practitioner Family; Visit Provider Nurse Practitioner Family
DX: Z12.31 Encounter for screening mammogram for malignant neoplasm of breast (principal); R92.323 Mammographic fibroglandular density, bilateral breasts; R92.1 Mammographic calcification found on diagnostic imaging of breast; N63.14 Unspecified lump in the right breast, lower inner quadrant
CPT/HCPCS: 77063; 77067